=== PATIENT | female | born 1975 | race Caucasian/White ===

== ENCOUNTER → 2017-01-12 | Outpatient (CLI) | payer MEDICAID ==
[2017-01-12 07:49] LABS: Appearance,Urine Cloudy (Clear); Basophils % (A) 0 %; Bilirubin,Urine Negative (Negative); CH 29.1; CHCM 33.1; Eosinophils # (A) 0.2 k/uL (0-0.7); Eosinophils % (A) 2 %; Glucose,Urine (UA) Negative (Negative); HDW 2.48; HGB 13.4 gm/dL (11.4-16.0); Ketones,Urine Negative (Negative); Large Platelets Flag Slight; Leukocyte Esterase,Urine Moderate (Negative); Luc # (Auto) 0.09; Luc % (Auto) 1; Lymphocytes # (A) 1.3 k/uL (1.0-4.8); Lymphocytes % (A) 20 %; MCH 28.9 pg (25.0-35.0); MCHC 32.8 g/dL (31.0-37.0); MCV 88.1 fL (80.0-100.0); Mean Platelet Volume 10.6; Monocytes # (A) 0.4 k/uL (0-1.0); Monocytes % (A) 6 %; Mucus,Urine Many /hpf; Neutrophils # (A) 4.4 k/uL (1.3-7.7); Neutrophils % (A) 70 %; Nitrite,Urine Negative (Negative); Particle Count 15897; Protein,Urine Trace (Negative); RBC 4.66 m/uL (3.80-5.40); RBC,Urine 10 /hpf (0-5); RDW 13.4 % (11.5-15.5); Specific Gravity,Urine 1.023 (1.001-1.035); Squamous Epithelial Cell,Urine 5 /hpf (0-4); UA Billing (MACRO vs. MICRO) MICRO; Urobilinogen,Urine <2.0 mg/dL (<2.0); WBC 6.3 k/uL (3.8-10.6); WBC (Perox) 6.39; WBC,Urine 7 /hpf (0-5)
[2017-01-12 07:56] LABS: ALT 40 U/L (9-52); AST 27 U/L (14-36); Alkaline Phosphatase 76 U/L (38-126); Anion Gap 12 mmol/L; Blood Urea Nitrogen 16 mg/dL (7-17); Calcium 9.7 mg/dL (8.4-10.2); Carbon Dioxide 27 mmol/L (22-30); Chloride 105 mmol/L (98-107); Cholesterol 192 mg/dL (<200); Creatine Kinase 65 U/L (30-135); Glucose 91 mg/dL (74-99); HDL Cholesterol 46 mg/dL (40-60); Non-African American GFR(MDRD) >60 (>60 ml/min/1.73 sqM); Potassium 4.2 mmol/L (3.5-5.1); Sodium 144 mmol/L (137-145); Total Protein 7.1 g/dL (6.3-8.2); Triglycerides 143 mg/dL (<150); Uric Acid 6.8 mg/dL (3.7-7.4)
[2017-01-12 08:12] LABS: Large Platelets Present; Manual Review Performed
[2017-01-12 09:15] LABS: Hemoglobin A1C 5.1 % (4.2-6.1)
== END | disposition home or self-care (01) ==
LOC: LABWHC1 07:19
PROVIDERS: ATTEND Internal Medicine
DX: L70.8 Other acne (principal); E28.2 Polycystic ovarian syndrome; M47.816 Spondylosis without myelopathy or radiculopathy, lumbar region; E55.9 Vitamin D deficiency, unspecified
CPT/HCPCS: 36415; 80053; 80061; 81001; 82306; 82550; 83036; 84439; 84443; 84550; 85025

== ENCOUNTER → 2017-03-05 | Outpatient (CLI) | payer MEDICAID ==
--- NOTE | 2017-03-05 09:46 | MM ---
Reason for exam: screening (asymptomatic). Baseline mammogram. History: Patient is nulliparous. Taking progesterone beginning at age 33. Physical Findings: Nurse did not find any significant physical abnormalities on exam. MG 3D Screening Mammo W/Cad Bilateral CC and MLO view(s) were taken. There are scattered fibroglandular densities. Finding: There are calcifications in the upper outer quadrant, middle position of the right breast. These results were verbally communicated with the patient and result sheet given to the patient on 03/05/17. ASSESSMENT: Incomplete: need additional imaging evaluation, BI-RAD 0 RECOMMENDATION: Special view mammogram of the right breast. If lesion persists on supplemental views, image directed ultrasound is recommended. [facility] will attempt to contact patient to return for supplemental views and ultrasound if indicated.
--- NOTE | 2017-03-05 09:52 | MM ---
Reason for exam: additional evaluation requested from abnormal screening. History: Patient is nulliparous. Taking progesterone beginning at age 33. Physical Findings: Breast exam preformed at baseline screening. MG 3D Work Up W/Cad RT Spot compression CC with magnification, spot compression MLO with magnification, and ML view(s) were taken of the right breast. There are scattered fibroglandular densities. Finding: There are intermediate concern, suspicious coarse heterogeneous, grouped/clustered calcifications in the upper outer quadrant, middle position of the right breast. These results were verbally communicated with the patient and result sheet given to the patient on 03/05/17. ASSESSMENT: Suspicious, BI-RAD 4 RECOMMENDATION: Stereotactic core biopsy of the right breast. Called with mammographic findings and has scheduled an appointment for the patient for 03/09/17 at 1:[address] Bennett. PRELIMINARY REPORT CALLED AND FAXED TO DR. BENNETT ON 03/05/17 AT 300/TMP.
== END | disposition home or self-care (01) ==
LOC: RADMAMWWP 08:13
PROVIDERS: ATTEND Obstetrics & Gynecology
DX: Z12.31 Encounter for screening mammogram for malignant neoplasm of breast (principal); R92.2 Inconclusive mammogram; R92.8 Other abnormal and inconclusive findings on diagnostic imaging of breast
CPT/HCPCS: 77063; G0202; G0206; G0279

== ENCOUNTER → 2017-03-18 | Day surgery (SDC) | payer MEDICAID ==
[~2017-03-18] MED LIST: ALPRAZolam 0.25 MG TAB ONE; BACITRACIN OINT 1 EACH PACKET TOPICAL ONE; LIDOCAINE 1% INJ 10MG/ML (20 ML MDV) ONE
--- NOTE | 2017-03-18 15:45 | MM ---
EXAMINATION TYPE: MG stereo VAD BX RT DATE OF EXAM: 03/18/2017 3:14 PM COMPARISON: Prior mammogram 05 March 2017 CLINICAL HISTORY: Abnormal mammogram, breast calcifications TECHNIQUE: Stereotactic guided core biopsy of right breast. FINDINGS: The procedure of stereotactic guided core biopsy was explained to the patient. Benefits, alternatives, and risks were discussed. An informed consent was then obtained. Stereotactic mammotome unit was used to localize the breast calcifications. The skin overlying was prepped. Lidocaine used for local anesthesia. Core biopsy then obtained using vacuum-assisted device. Approximately 6 or 7 cores were obtained with an 8-gauge Needle. The patient tolerated the procedure well without any immediate complication. The patient was kept in the radiology department for short stay after the procedure and then discharged home in stable condition. Targeted calcifications are identified in specimen mammogram. Post biopsy digital mammogram shows the clip to appear in satisfactory position relative to the targeted area of concern on the preprocedure images. IMPRESSION: SUCCESSFUL, UNCOMPLICATED STEREOTACTIC GUIDED VACUUM ASSISTED CORE BIOPSY OF AREA OF CONCERN IN THE right BREAST, FULL PATHOLOGY RESULTS TO FOLLOW. Pathology Results: Benign BREAST, RIGHT, CORE BIOPSY: FIBROCYSTIC CHANGES INCLUDING CYSTS, APOCRINE METAPLASIA, FIBROSIS, USUAL TYPE DUCTAL HYPERPLASIA AND FOCAL FOREIGN BODY GIANT CELL REACTION WITH CHRONIC INFLAMMATION. SEE NOTE. ADDENDUM REPORT BREAST, RIGHT, CORE BIOPSY: FIBROCYSTIC CHANGES INCLUDING CYSTS, APOCRINE METAPLASIA, FIBROSIS, USUAL TYPE DUCTAL HYPERPLASIA AND CALCIUM OXALATE CRYSTAL WITH FOREIGN BODY GIANT CELL REACTION, CHOLESTEROL CLEFTS AND CHRONIC INFLAMMATION. Recommendation Follow up mammogram of the right breast in 6 months. HANNAH
== END ==
LOC: RADMAMWWP 13:16
PROVIDERS: ATTEND Obstetrics & Gynecology
DX: N60.31 Fibrosclerosis of right breast (principal); N60.81 Other benign mammary dysplasias of right breast; N60.91 Unspecified benign mammary dysplasia of right breast; N61.0 Mastitis without abscess; N60.11 Diffuse cystic mastopathy of right breast; Z88.3 Allergy status to other anti-infective agents; R92.0 Mammographic microcalcification found on diagnostic imaging of breast
CPT/HCPCS: 88305; 19081; A4648; J2001

== ENCOUNTER → 2017-04-26 | Outpatient (CLI) | payer MEDICAID | END | disposition home or self-care (01) | LOC: LABWHC1 13:17 | PROVIDERS: ATTEND Internal Medicine Geriatric Medicine | DX: E55.9 Vitamin D deficiency, unspecified (principal) | CPT/HCPCS: 36415; 82306 ==

== ENCOUNTER → 2018-04-26 | Outpatient (CLI) | payer MEDICAID ==
[2018-04-26 07:51] LABS: ALT 41 U/L (9-52); AST 30 U/L (14-36); Albumin 4.4 g/dL (3.5-5.0); Alkaline Phosphatase 74 U/L (38-126); Anion Gap 11 mmol/L; Blood Urea Nitrogen 13 mg/dL (7-17); Calcium 9.2 mg/dL (8.4-10.2); Carbon Dioxide 24 mmol/L (22-30); Chloride 107 mmol/L (98-107); Cholesterol 228 mg/dL (<200); Creatine Kinase 69 U/L (30-135); Glucose 91 mg/dL (74-99); HDL Cholesterol 54 mg/dL (40-60); LDL Cholesterol,Calculated 139 mg/dL (0-99); Magnesium 2.2 mg/dL (1.6-2.3); Potassium 4.7 mmol/L (3.5-5.1); Sodium 142 mmol/L (137-145); Total Bilirubin 1.2 mg/dL (0.2-1.3); Triglycerides 175 mg/dL (<150)
[2018-04-26 08:06] LABS: Appearance,Urine Clear (Clear); Bacteria,Urine Occasional /hpf; Bilirubin,Urine Negative (Negative); Blood,Urine Negative (Negative); Color,Urine Yellow; Glucose,Urine (UA) Negative (Negative); Ketones,Urine Negative (Negative); Leukocyte Esterase,Urine Trace (Negative); Mucus,Urine Moderate /hpf; Nitrite,Urine Negative (Negative); Protein,Urine Negative (Negative); RBC,Urine 3 /hpf (0-5); Specific Gravity,Urine 1.013 (1.001-1.035); Squamous Epithelial Cell,Urine 1 /hpf (0-4); T4, Free (Free Thyroxine) 0.75 ng/dL (0.78-2.19); Urobilinogen,Urine <2.0 mg/dL (<2.0); WBC,Urine 3 /hpf (0-5)
[2018-04-26 08:55] LABS: Basophils % (A) 0 %; Eosinophils # (A) 0.2 k/uL (0-0.7); Eosinophils % (A) 3 %; HCT 40.7 % (34.0-46.0); HGB 13.5 gm/dL (11.4-16.0); Lymphocytes # (A) 1.4 k/uL (1.0-4.8); Lymphocytes % (A) 22 %; MCH 28.9 pg (25.0-35.0); MCHC 33.3 g/dL (31.0-37.0); MCV 86.9 fL (80.0-100.0); Mean Platelet Volume 12.1; Monocytes # (A) 0.4 k/uL (0-1.0); Monocytes % (A) 6 %; Neutrophils # (A) 4.4 k/uL (1.3-7.7); Neutrophils % (A) 68 %; Platelet Count 188 k/uL (150-450); RBC 4.68 m/uL (3.80-5.40); RDW 13.5 % (11.5-15.5); WBC 6.5 k/uL (3.8-10.6)
[2018-04-26 10:52] LABS: Large Platelets Present
[2018-04-26 13:36] LABS: Hemoglobin A1C 5.4 % (4.0-6.0)
== END | disposition home or self-care (01) ==
LOC: LABWHC1 07:15
PROVIDERS: ATTEND Internal Medicine
DX: E78.00 Pure hypercholesterolemia, unspecified (principal); E55.9 Vitamin D deficiency, unspecified; R00.1 Bradycardia, unspecified
CPT/HCPCS: 36415; 80053; 80061; 81001; 82306; 82550; 83036; 83735; 84439; 84443; 85025

== ENCOUNTER → 2018-05-10 | Outpatient (CLI) | payer MEDICAID ==
--- NOTE | 2018-05-12 08:01 | MM ---
Reason for exam: screening (asymptomatic). Last mammogram was performed 8 months ago. History: Patient is nulliparous. Benign MG stereo VAD BX RT of the right breast, March 18, 2017. Taking progesterone beginning at age 33. Physical Findings: A clinical breast exam by your physician is recommended on an annual basis and results should be correlated with mammographic findings. MG 3D Screening Mammo W/Cad Bilateral CC and MLO view(s) were taken. Prior study comparison: September 09, 2017, right breast MG 3d diag mammo w/cad RT. March 05, 2017, right breast MG 3d work up w/cad RT. The breast tissue is heterogeneously dense. This may lower the sensitivity of mammography. No suspicious abnormality. Right biopsy marker noted. No significant changes when compared with prior studies. ASSESSMENT: Negative, BI-RAD 1 RECOMMENDATION: Routine screening mammogram of both breasts in 1 year.
== END | disposition home or self-care (01) ==
LOC: RADMAMWWP 07:14
PROVIDERS: ATTEND Obstetrics & Gynecology
DX: Z12.31 Encounter for screening mammogram for malignant neoplasm of breast (principal)
CPT/HCPCS: 77063; 77067

== ENCOUNTER → 2018-07-06 | Outpatient (CLI) | payer MEDICAID ==
[2018-07-06 08:12] LABS: T4, Free (Free Thyroxine) 0.83 ng/dL (0.78-2.19)
== END | disposition home or self-care (01) ==
LOC: LABWHC1 07:11
PROVIDERS: ATTEND Internal Medicine
DX: E78.00 Pure hypercholesterolemia, unspecified (principal); E03.9 Hypothyroidism, unspecified
CPT/HCPCS: 36415; 80061; 82550; 84439; 84443; 84450; 84460

== ENCOUNTER → 2019-03-30 | Outpatient (CLI) | payer MEDICAID ==
[2019-03-30 08:09] LABS: Basophils % (A) 1 %; Eosinophils # (A) 0.2 k/uL (0-0.7); Eosinophils % (A) 2 %; HCT 40.9 % (34.0-46.0); HGB 13.5 gm/dL (11.4-16.0); Lymphocytes # (A) 1.7 k/uL (1.0-4.8); Lymphocytes % (A) 23 %; MCH 29.3 pg (25.0-35.0); MCV 88.8 fL (80.0-100.0); Mean Platelet Volume 10.8; Monocytes # (A) 0.4 k/uL (0-1.0); Monocytes % (A) 6 %; Neutrophils # (A) 5.1 k/uL (1.3-7.7); Neutrophils % (A) 67 %; RBC 4.61 m/uL (3.80-5.40); WBC 7.5 k/uL (3.8-10.6)
[2019-03-30 08:21] LABS: Appearance,Urine Clear (Clear); Bacteria,Urine Occasional /hpf; Bilirubin,Urine Negative (Negative); Blood,Urine Negative (Negative); Color,Urine Yellow; Glucose,Urine (UA) Negative (Negative); Ketones,Urine Negative (Negative); Leukocyte Esterase,Urine Small (Negative); Mucus,Urine Occasional /hpf; Nitrite,Urine Negative (Negative); Protein,Urine Negative (Negative); RBC,Urine <1 /hpf (0-5); Specific Gravity,Urine 1.021 (1.001-1.035); Squamous Epithelial Cell,Urine 3 /hpf (0-4); Urobilinogen,Urine <2.0 mg/dL (<2.0); WBC,Urine 2 /hpf (0-5)
[2019-03-30 08:39] LABS: Large Platelets Present; Platelet Count 220 k/uL (150-450)
[2019-03-30 11:36] LABS: Albumin 4.3 g/dL (3.80-4.90); Albumin/Globulin Ratio 2.05 (1.60-3.17); Anion Gap 5.2 mmol/L (4.00-12.00); Calcium 9.5 mg/dL (8.7-10.3); Carbon Dioxide 26.8 mmol/L (21.6-31.8); Globulin 2.1 g/dL (1.6-3.3); LDL Cholesterol,Calculated 88.4 mg/dL (0.0-131.0); Potassium 4.5 mmol/L (3.5-5.5); Total Bilirubin 0.6 mg/dL (0.2-1.2); Total Protein 6.4 g/dL (6.2-8.2); VLDL Calculation 24.6 mg/dL (5.00-40.00)
[2019-03-30 11:45] LABS: T4, Free (Free Thyroxine) 1.1 ng/dL (0.80-1.80)
[2019-03-30 13:38] LABS: Hemoglobin A1C 5.4 % (4.0-6.0)
== END | disposition home or self-care (01) ==
LOC: LABWHC1 07:35
PROVIDERS: ATTEND Internal Medicine
DX: E78.2 Mixed hyperlipidemia (principal); E03.9 Hypothyroidism, unspecified; R79.9 Abnormal finding of blood chemistry, unspecified; E55.9 Vitamin D deficiency, unspecified
CPT/HCPCS: 36415; 80053; 80061; 81001; 82306; 82550; 83036; 84439; 84443; 85025

== ENCOUNTER → 2019-04-07 | Outpatient (CLI) | payer MEDICAID ==
--- NOTE | 2019-04-07 12:36 | XR ---
EXAMINATION TYPE: XR humerus LT DATE OF EXAM: 04/07/2019 CLINICAL HISTORY: Mass lesion with no injury. TECHNIQUE: Two views of the left humerus are obtained. COMPARISON: None. FINDINGS: There is no acute fracture or dislocation seen in the left humerus. The left shoulder and elbow joints appear within normal limits. The overlying soft tissue appears within normal limits. IMPRESSION: Unremarkable study, if clinical concern for soft tissue mass persists further investigati on with MRI may be warranted.
== END | disposition home or self-care (01) ==
LOC: RADXRMAIN 12:11
PROVIDERS: ATTEND Internal Medicine
DX: R22.32 Localized swelling, mass and lump, left upper limb (principal)

== ENCOUNTER → 2019-04-21 | Outpatient (CLI) | payer MEDICAID ==
--- NOTE | 2019-04-21 10:10 | MR ---
MR left humerus within without contrast HISTORY: Soft tissue mass Multiplanar multisequence and postcontrast images obtained through the upper left humerus following 1 2 cc Gadavist IV. Correlation to plain film 04/07/2019 There is a focal area of signal intensity which follows that of subcutaneous fat within the deltoid m usculature laterally at the site of patient's palpable abnormality. Bandlike area of signal intensity following patient's musculature signal is present running through this abnormality. The lesion measu res approximately 2.3 x 1.7 x 5.2 cm. No abnormal enhancement following contrast administration. The bone marrow signal is normal. Acromioclavicular joint arthropathy noted incidentally. Glenohumera l joint is maintained. No abnormal enhancement. Benign-appearing lymph nodes present in the left axil la. IMPRESSION: Findings compatible with lipoma.
== END | disposition home or self-care (01) ==
LOC: RADMRIMAIN 06:38
PROVIDERS: ATTEND Internal Medicine
DX: D17.22 Benign lipomatous neoplasm of skin and subcutaneous tissue of left arm (principal)
CPT/HCPCS: 73220; A9585

== ENCOUNTER → 2019-06-15 | Outpatient (CLI) | payer MEDICAID ==
--- NOTE | 2019-06-15 14:39 | MM ---
Reason for exam: screening (asymptomatic). Last mammogram was performed 1 year and 1 month ago. History: Patient is nulliparous. Family history of breast cancer in maternal aunt at age 58. Benign MG stereo VAD BX RT of the right breast, March 18, 2017. Taking progesterone beginning at age 33. Physical Findings: A clinical breast exam by your physician is recommended on an annual basis and results should be correlated with mammographic findings. MG 3D Screening Mammo W/Cad Bilateral CC and MLO view(s) were taken. Prior study comparison: May 10, 2018, bilateral MG 3d screening mammo w/cad. September 09, 2017, right breast MG 3d diag mammo w/cad RT. The breast tissue is heterogeneously dense. This may lower the sensitivity of mammography. Previous mammotome biopsy in the right breast. There is no discrete abnormality. ASSESSMENT: Benign, BI-RAD 2 RECOMMENDATION: Routine screening mammogram of both breasts in 1 year.
== END | disposition home or self-care (01) ==
LOC: RADMAMWWP 11:14
PROVIDERS: ATTEND Obstetrics & Gynecology
DX: Z12.31 Encounter for screening mammogram for malignant neoplasm of breast (principal)
CPT/HCPCS: 77063; 77067

== ENCOUNTER → 2020-05-20 | Outpatient (CLI) | payer MEDICAID ==
[2020-05-20 08:16] LABS: Basophils % (A) 1 %; Eosinophils # (A) 0.2 k/uL (0-0.7); Eosinophils % (A) 3 %; HCT 41.6 % (34.0-46.0); HGB 13.3 gm/dL (11.4-16.0); Lymphocytes # (A) 1.7 k/uL (1.0-4.8); Lymphocytes % (A) 20 %; MCH 28.5 pg (25.0-35.0); MCHC 32.1 g/dL (31.0-37.0); MCV 88.9 fL (80.0-100.0); Mean Platelet Volume 12.8; Monocytes # (A) 0.5 k/uL (0-1.0); Monocytes % (A) 5 %; Neutrophils # (A) 5.9 k/uL (1.3-7.7); Neutrophils % (A) 70 %; Platelet Count 177 k/uL (150-450); RBC 4.68 m/uL (3.80-5.40); RDW 13.4 % (11.5-15.5); WBC 8.4 k/uL (3.8-10.6)
[2020-05-20 08:29] LABS: Large Platelets Present
[2020-05-20 15:37] LABS: Albumin 4.3 g/dL (3.80-4.90); Albumin/Globulin Ratio 2.05 (1.60-3.17); Anion Gap 4.2 mmol/L (4.00-12.00); Calcium 9.4 mg/dL (8.7-10.3); Carbon Dioxide 27.8 mmol/L (21.6-31.8); Chol/HDL Ratio 3.35; Globulin 2.1 g/dL (1.6-3.3); Non-African American GFR(CKD) 106.1 (60.0-200.0); Potassium 4.4 mmol/L (3.5-5.5); Total Bilirubin 0.9 mg/dL (0.2-1.2); Total Protein 6.4 g/dL (6.2-8.2)
== END | disposition home or self-care (01) ==
LOC: LABWHC1 07:28
PROVIDERS: ATTEND Internal Medicine
DX: Z00.00 Encounter for general adult medical examination without abnormal findings (principal); E55.9 Vitamin D deficiency, unspecified; E78.2 Mixed hyperlipidemia
CPT/HCPCS: 36415; 80053; 80061; 82306; 84443; 85025

== ENCOUNTER → 2020-08-29 | Outpatient (CLI) | payer MEDICAID ==
--- NOTE | 2020-09-02 14:01 | MM ---
Reason for exam: screening (asymptomatic). Last mammogram was performed 1 year and 2 months ago. History: Patient is nulliparous. Family history of breast cancer in maternal aunt at age 58. Benign MG stereo VAD BX RT of the right breast, March 18, 2017. Taking progesterone beginning at age 33. Physical Findings: A clinical breast exam by your physician is recommended on an annual basis and results should be correlated with mammographic findings. MG 3D Screening Mammo W/Cad Bilateral CC and MLO view(s) were taken. Prior study comparison: June 15, 2019, bilateral MG 3d screening mammo w/cad. May 10, 2018, bilateral MG 3d screening mammo w/cad. There are scattered fibroglandular densities. No significant changes when compared with prior studies. ASSESSMENT: Benign, BI-RAD 2 RECOMMENDATION: Routine screening mammogram of both breasts in 1 year.
== END | disposition home or self-care (01) ==
LOC: RADMAMWWP 06:55
PROVIDERS: ATTEND Obstetrics & Gynecology
DX: Z12.31 Encounter for screening mammogram for malignant neoplasm of breast (principal)
CPT/HCPCS: 77063; 77067

== ENCOUNTER → 2021-05-12 | Outpatient (CLI) | payer MEDICAID ==
[2021-05-12 11:15] LABS: African American GFR (CKD) 122.1 (60.0-200.0); Albumin 4.3 g/dL (3.80-4.90); Albumin/Globulin Ratio 2.05 (1.60-3.17); Anion Gap 10.4 mmol/L (4.00-12.00); BUN/Creat Ratio 15.71 Ratio (12.00-20.00); Calcium 9.6 mg/dL (8.7-10.3); Carbon Dioxide 24.6 mmol/L (21.6-31.8); Chol/HDL Ratio 3.26; Globulin 2.1 g/dL (1.6-3.3); LDL Cholesterol,Calculated 84.4 mg/dL (0.0-131.0); Non-African American GFR(CKD) 105.4 (60.0-200.0); Potassium 4.2 mmol/L (3.5-5.5); Total Bilirubin 0.7 mg/dL (0.3-1.2); Total Protein 6.4 g/dL (6.2-8.2); VLDL Calculation 21.6 mg/dL (5.00-40.00)
[2021-05-12 12:56] LABS: Basophils # (A) 0.03 X 10*3/uL (0.00-0.10); Basophils % (A) 0.4 %; Eosinophils % (A) 2.4 %; HCT 39.6 % (37.2-46.3); HGB 12.9 g/dL (12.0-15.0); Lymphocytes # (A) 2.04 X 10*3/uL (0.90-5.00); Lymphocytes % (A) 24.7 %; MCH 29.7 pg (27.0-32.0); MCHC 32.6 g/dL (32.0-37.0); MCV 91.2 fL (80.0-97.0); Monocytes # (A) 0.71 X 10*3/uL (0.20-1.00); Monocytes % (A) 8.6 %; Neutrophils # (A) 5.26 X 10*3/uL (1.80-7.70); Neutrophils % (A) 63.5 %; Platelet Count 188 X 10*3/uL (140-440); RBC 4.34 X 10*6/uL (4.10-5.20); RDW 13.7 % (11.5-14.5); WBC 8.27 X 10*3/uL (4.50-10.00)
== END | disposition home or self-care (01) ==
LOC: LABWHC1 07:10
PROVIDERS: ATTEND Internal Medicine
DX: Z13.228 Encounter for screening for other metabolic disorders (principal); E03.9 Hypothyroidism, unspecified; E78.2 Mixed hyperlipidemia; E55.9 Vitamin D deficiency, unspecified
CPT/HCPCS: 36415; 80053; 80061; 82306; 84439; 84443; 85025

== ENCOUNTER → 2021-09-18 | Outpatient (CLI) | payer MEDICAID ==
--- NOTE | 2021-09-18 13:38 | MM ---
Reason for exam: screening (asymptomatic). Last mammogram was performed 1 year and 1 month ago. History: Patient is nulliparous. Family history of breast cancer in maternal aunt at age 58. Benign MG stereo VAD BX RT of the right breast, March 18, 2017. Taking progesterone beginning at age 33. Physical Findings: A clinical breast exam by your physician is recommended on an annual basis and results should be correlated with mammographic findings. MG 3D Screening Mammo W/Cad Bilateral CC and MLO view(s) were taken. Prior study comparison: August 29, 2020, bilateral MG 3d screening mammo w/cad. June 15, 2019, bilateral MG 3d screening mammo w/cad. There are scattered fibroglandular densities. There are benign appearing round calcifications bilaterally. Previous mammotome biopsy in the right breast. There is no discrete abnormality. ASSESSMENT: Benign, BI-RAD 2 RECOMMENDATION: Routine screening mammogram of both breasts in 1 year.
== END | disposition home or self-care (01) ==
LOC: RADMAMWWP 07:05
PROVIDERS: ATTEND Obstetrics & Gynecology
DX: Z12.31 Encounter for screening mammogram for malignant neoplasm of breast (principal); Z80.3 Family history of malignant neoplasm of breast
CPT/HCPCS: 77063; 77067

== ENCOUNTER → 2022-04-09 | Outpatient (CLI) | payer MEDICAID ==
--- NOTE | 2022-04-09 09:07 | USB ---
Reason for Exam: Clinical finding. Indicated Problems: Palpable abnormality. Patient History: Menarche at age 15. Patient has no children. Currently using Progesterone, starting at age 33. 03/18/2017, Benign Core Biopsy on the right side. Maternal aunt had breast cancer, age 58. Risk Values: Kierra 5 year model risk: 1.3%. NCI Lifetime model risk: 11.7%. Technique: Method: Whole Breast Handheld. Prior Study Comparison: 06/15/2019 Bilateral Screening Mammogram, [facility]. 08/29/2020 Bilateral Screening Mammogram, [facility]. 09/18/2021 Bilateral Screening Mammogram, [facility]. Findings: The whole breast of the right breast, the axilla of the right breast and the retroareolar of the right breast were scanned. No solid or cystic masses are identified. Whole right breast ultrasound including evaluation of subareolar and axillary region. Overall Assessment: Negative, BI-RAD 1 Electronically signed and approved by: Jose Costello M.D.
== END | disposition home or self-care (01) ==
LOC: RADUSWWP 08:22
PROVIDERS: ATTEND Obstetrics & Gynecology
DX: R92.8 Other abnormal and inconclusive findings on diagnostic imaging of breast (principal); Z80.3 Family history of malignant neoplasm of breast

== ENCOUNTER → 2022-07-17 | Outpatient (CLI) | payer MEDICAID ==
[2022-07-17 10:55] LABS: Basophils # (A) 0.04 X 10*3/uL (0.00-0.10); Basophils % (A) 0.5 %; Eosinophils % (A) 1.3 %; HCT 40.6 % (37.2-46.3); HGB 13.5 g/dL (12.0-15.0); Immature Grans, Automated 0.3 %; Lymphocytes # (A) 1.62 X 10*3/uL (0.90-5.00); Lymphocytes % (A) 20.7 %; MCH 29.8 pg (27.0-32.0); MCHC 33.3 g/dL (32.0-37.0); MCV 89.6 fL (80.0-97.0); Mean Platelet Volume 14.2 fL (9.5-12.2); Monocytes # (A) 0.67 X 10*3/uL (0.20-1.00); Monocytes % (A) 8.6 %; NRBC Per 100 WBC 0 /100 WBCS (0.0-0.0); Neutrophils # (A) 5.36 X 10*3/uL (1.80-7.70); Neutrophils % (A) 68.6 %; Platelet Count 191 X 10*3/uL (140-440); RBC 4.53 X 10*6/uL (4.10-5.20); RDW 13.2 % (11.5-14.5); WBC 7.81 X 10*3/uL (4.50-10.00)
[2022-07-17 12:14] LABS: ALT 16 U/L (8-44); AST 19 U/L (13-35); African American GFR (CKD) 122.7 (60.0-200.0); Albumin 4.3 g/dL (3.8-4.9); Albumin/Globulin Ratio 2.19 (1.60-3.17); Alkaline Phosphatase 66 U/L (41-126); BUN/Creat Ratio 15.09 Ratio (12.00-20.00); Blood Urea Nitrogen 10.2 mg/dL (9.0-27.0); Calcium 9.1 mg/dL (8.7-10.3); Carbon Dioxide 23.8 mmol/L (20.0-27.5); Chloride 106 mmol/L (96-109); Glucose 91 mg/dL (70-110); LDL Cholesterol,Calculated 66.3 mg/dL (0.0-131.0); Non-African American GFR(CKD) 105.8 (60.0-200.0); Potassium 4.1 mmol/L (3.5-5.5); Sodium 142 mmol/L (135-145); Total Protein 6.3 g/dL (6.2-8.2); VLDL Calculation 12.34 mg/dL (5.00-40.00)
[2022-07-17 16:03] LABS: Appearance,Urine Cloudy (Clear); Bilirubin,Urine Small (Negative); Blood,Urine Negative (Negative); Color,Urine Dark Yellow (Yellow); Ketones,Urine Trace mg/dL (Negative); Nitrite,Urine Negative (Negative); Specific Gravity,Urine 1.028 (1.001-1.030)
[2022-07-17 16:08] LABS: Bacteria,Urine Trace /HPF (None Seen)
== END | disposition home or self-care (01) ==
LOC: LABWHC1 07:13
PROVIDERS: ATTEND Internal Medicine
DX: E03.9 Hypothyroidism, unspecified (principal); E28.2 Polycystic ovarian syndrome; E78.2 Mixed hyperlipidemia
CPT/HCPCS: 36415; 80053; 80061; 81001; 83036; 84439; 84443; 85025

== ENCOUNTER → 2022-09-30 | Outpatient (CLI) | payer MEDICAID ==
--- NOTE | 2022-09-30 16:00 | MM ---
Reason for Exam: Screening (asymptomatic). Last screening mammogram was performed 12 month(s) ago. Patient History: Menarche at age 15. Patient has no children. Progesterone, starting at age 33 for 12 years. 03/18/2017, Benign Core Biopsy on the right side. Maternal aunt had breast cancer, age 58. Risk Values: Kierra 5 year model risk: 1.3%. NCI Lifetime model risk: 11.7%. Prior Study Comparison: 06/15/2019 Bilateral Screening Mammogram, [facility]. 08/29/2020 Bilateral Screening Mammogram, [facility]. 09/18/2021 Bilateral Screening Mammogram, [facility]. Tissue Density: There are scattered fibroglandular densities. Findings: Analyzed By CAD. Right biopsy clip. Asymmetry within the right breast seen on CC only measuring 7 mm and approximately 11.8 cm from the nipple. No evidence for suspicious mass distortion or desiccation of the left breast. ASSESSMENT: 1 - Negative. Overall Assessment: Incomplete: need additional imaging evaluation, BI-RAD 0 Management: Diagnostic Mammogram of the left breast. A clinical breast exam by your physician is recommended on an annual basis and results should be correlated with mammographic findings. [facility] will attempt to contact patient to return for supplemental views and ultrasound if indicated. Electronically signed and approved by: Serafin Bhardwaj DO
== END | disposition home or self-care (01) ==
LOC: RADMAMWWP 07:22
PROVIDERS: ATTEND Obstetrics & Gynecology
DX: Z12.31 Encounter for screening mammogram for malignant neoplasm of breast (principal); Z80.3 Family history of malignant neoplasm of breast
CPT/HCPCS: 77063; 77067

== ENCOUNTER → 2022-10-07 | Outpatient (CLI) | payer MEDICAID ==
--- NOTE | 2022-10-07 09:45 | MM ---
Reason for Exam: Additional evaluation requested from abnormal screening. Last screening mammogram was performed less than 1 month ago. Patient History: Menarche at age 15. Patient has no children. Progesterone, starting at age 33 for 12 years. 03/18/2017, Benign Core Biopsy on the right side. Maternal aunt had breast cancer, age 58. Risk Values: Kierra 5 year model risk: 1.3%. NCI Lifetime model risk: 11.7%. Prior Study Comparison: 08/29/2020 Bilateral Screening Mammogram, [facility]. 09/18/2021 Bilateral Screening Mammogram, [facility]. 09/30/2022 Bilateral MG 3D screening mammo w/cad, [facility]. Tissue Density: Left: The breast tissue is heterogeneously dense. This may lower the sensitivity of mammography. Findings: Analyzed By CAD. Nodular density measuring 8 mm approximately 11 mm from the nipple at the left 9:00 position persists. Ultrasound is recommended. Overall Assessment: Incomplete: need additional imaging evaluation, BI-RAD 0 Management: Diagnostic Breast Ultrasound of the left breast. A clinical breast exam by your physician is recommended on an annual basis and results should be correlated with mammographic findings. This exam should not preclude additional follow-up of suspicious palpable abnormalities. Results were given to the patient verbally at the time of exam. Electronically signed and approved by: Yifan Max M.D. Radiologis
--- NOTE | 2022-10-07 10:15 | USB ---
Reason for Exam: Additional evaluation requested from abnormal screening. Patient History: Menarche at age 15. Patient has no children. Progesterone, starting at age 33 for 12 years. 03/18/2017, Benign Core Biopsy on the right side. Maternal aunt had breast cancer, age 58. Risk Values: Kierra 5 year model risk: 1.3%. NCI Lifetime model risk: 11.7%. Prior Study Comparison: 08/29/2020 Bilateral Screening Mammogram, [facility]. 09/18/2021 Bilateral Screening Mammogram, [facility]. 09/30/2022 Bilateral MG 3D screening mammo w/cad, [facility]. Findings: The lower inner quadrant of the left breast and the retroareolar of the left breast were scanned. No solid or cystic masses are identified.. Overall Assessment: Probably benign, BI-RAD 3 Management: Diagnostic Mammogram of the left breast in 6 months. A clinical breast exam by your physician is recommended on an annual basis and results should be correlated with mammographic findings. This exam should not preclude additional follow-up of suspicious palpable abnormalities. Results were given to the patient verbally at the time of exam. Electronically signed and approved by: Yifan Max M.D. Radiologis
== END | disposition home or self-care (01) ==
LOC: RADMAMWWP 09:03
PROVIDERS: ATTEND Obstetrics & Gynecology
DX: R92.8 Other abnormal and inconclusive findings on diagnostic imaging of breast (principal); Z80.3 Family history of malignant neoplasm of breast
CPT/HCPCS: 77061; 77065

== ENCOUNTER → 2023-04-12 | Outpatient (CLI) | payer MEDICAID ==
--- NOTE | 2023-04-12 07:29 | MM ---
Reason for Exam: Follow-up at short interval from prior study. Last screening mammogram was performed 7 month(s) ago. Patient History: Menarche at age 15. Patient has no children. Progesterone, starting at age 33 for 12 years. 03/18/2017, Benign Core Biopsy on the right side. Maternal aunt had breast cancer, age 58. Last menstrual period: 04/05/2023 Risk Values: Kierra 5 year model risk: 1.3%. NCI Lifetime model risk: 11.5%. Prior Study Comparison: 09/18/2021 Bilateral Screening Mammogram, [facility]. 09/30/2022 Bilateral MG 3D screening mammo w/cad, [facility]. 10/07/2022 Left MG 3D work up w/cad , [facility]. Tissue Density: Left: The breast tissue is heterogeneously dense. This may lower the sensitivity of mammography. Findings: Analyzed By CAD. Persistent nodular density measuring 8 mm at the left lower inner left breast at posterior depth. No new suspicious masses or suspicious calcifications. Overall Assessment: Incomplete: need additional imaging evaluation, BI-RAD 0 Management: Diagnostic Breast Ultrasound of the left breast. A clinical breast exam by your physician is recommended on an annual basis and results should be correlated with mammographic findings. This exam should not preclude additional follow-up of suspicious palpable abnormalities. Results were given to the patient verbally at the time of exam. Electronically signed and approved by: Adolfo Reyes D.O.
--- NOTE | 2023-04-12 07:47 | USB ---
Reason for Exam: Follow-up at short interval from prior study. Patient History: Menarche at age 15. Patient has no children. Progesterone, starting at age 33 for 12 years. 03/18/2017, Benign Core Biopsy on the right side. Maternal aunt had breast cancer, age 58. Risk Values: Kierra 5 year model risk: 1.3%. NCI Lifetime model risk: 11.5%. Technique: Method: Targeted. Prior Study Comparison: 09/18/2021 Bilateral Screening Mammogram, [facility]. 09/30/2022 Bilateral MG 3D screening mammo w/cad, [facility]. 10/07/2022 Left MG 3D work up w/cad , [facility]. Findings: The lower inner quadrant of the left breast, the axilla of the left breast and the retroareolar of the left breast were scanned. Targeted ultrasound of the left breast from 6-10 o'clock was performed with additional evaluation of the nipple and axilla. No solid or cystic lesion identified corresponding to mammographic findings. Overall Assessment: Probably benign, BI-RAD 3 Management: Diagnostic Mammogram of both breasts in 6 months. A clinical breast exam by your physician is recommended on an annual basis and results should be correlated with mammographic findings. This exam should not preclude additional follow-up of suspicious palpable abnormalities. Results were given to the patient verbally at the time of exam. Electronically signed and approved by: Adolfo Reyes D.O.
== END | disposition home or self-care (01) ==
LOC: RADMAMWWP 07:00
PROVIDERS: ATTEND Obstetrics & Gynecology
DX: N63.24 Unspecified lump in the left breast, lower inner quadrant (principal); Z80.3 Family history of malignant neoplasm of breast; R92.8 Other abnormal and inconclusive findings on diagnostic imaging of breast; R92.2 Inconclusive mammogram
CPT/HCPCS: 77061; 77065

== ENCOUNTER → 2023-07-24 | Outpatient (CLI) | payer MEDICAID ==
[2023-07-24 09:40] LABS: Appearance,Urine Cloudy (Clear); Bacteria,Urine Occasional /hpf; Bilirubin,Urine Negative (Negative); Blood,Urine Negative (Negative); Color,Urine Light Yellow; Glucose,Urine (UA) Negative (Negative); Ketones,Urine Negative (Negative); Leukocyte Esterase,Urine Trace (Negative); Mucus,Urine Rare /hpf; Nitrite,Urine Negative (Negative); Protein,Urine Negative (Negative); RBC,Urine 1 /hpf (0-5); Specific Gravity,Urine 1.013 (1.001-1.035); Squamous Epithelial Cell,Urine 3 /hpf (0-4); Urobilinogen,Urine <2.0 mg/dL (<2.0); WBC,Urine 1 /hpf (0-5)
[2023-07-24 10:53] LABS: Basophils % (A) 0 %; Eosinophils # (A) 0.1 k/uL (0-0.7); Eosinophils % (A) 1 %; HCT 41.5 % (34.0-46.0); HGB 13.7 gm/dL (11.4-16.0); Lymphocytes # (A) 1.4 k/uL (1.0-4.8); Lymphocytes % (A) 21 %; MCH 29.9 pg (25.0-35.0); MCHC 33.1 g/dL (31.0-37.0); MCV 90.3 fL (80.0-100.0); Monocytes # (A) 0.4 k/uL (0-1.0); Monocytes % (A) 6 %; Neutrophils # (A) 4.6 k/uL (1.3-7.7); Neutrophils % (A) 70 %; Platelet Count 217 k/uL (150-450); RBC 4.59 m/uL (3.80-5.40); RDW 13.4 % (11.5-15.5); WBC 6.6 k/uL (3.8-10.6)
[2023-07-24 15:10] LABS: ALT 25 U/L (8-44); AST 21 U/L (13-35); Albumin 4.5 d/dL (3.8-4.9); Albumin/Globulin Ratio 2.05 Ratio (1.60-3.17); Alkaline Phosphatase 76 U/L (41-126); BUN/Creat Ratio 17.33 Ratio (12.00-20.00); Blood Urea Nitrogen 10.4 mg/dL (9.0-27.0); Calcium 8.9 mg/dL (8.7-10.3); Carbon Dioxide 24.8 mmol/L (21.6-31.8); Chloride 107 mmol/L (96-109); Chol/HDL Ratio 2.67 Ratio; Globulin 2.2 d/dL (1.6-3.3); Glucose 90 mg/dL (70-110); LDL Cholesterol,Calculated 70.9 mg/dL (0.0-131.0); Magnesium 2.1 mg/dL (1.5-2.4); Potassium 4.4 mmol/L (3.5-5.5); Sodium 142 mmol/L (135-145); Total Bilirubin 0.5 mg/dL (0.3-1.2); Total Protein 6.7 d/dL (6.2-8.2); VLDL Calculation 13.54 mg/dL (5.00-40.00)
== END | disposition home or self-care (01) ==
LOC: LABWHC1 08:20
PROVIDERS: ATTEND Internal Medicine
DX: Z00.00 Encounter for general adult medical examination without abnormal findings (principal); E78.2 Mixed hyperlipidemia; E55.9 Vitamin D deficiency, unspecified; E03.9 Hypothyroidism, unspecified
CPT/HCPCS: 36415; 80053; 80061; 81001; 82306; 83735; 84443; 85025

== ENCOUNTER → 2023-07-28 | Outpatient (CLI) | payer MEDICAID | END | disposition home or self-care (01) | LOC: LABWHC1 15:01 | PROVIDERS: ATTEND Internal Medicine | DX: M10.9 Gout, unspecified (principal) | CPT/HCPCS: 36415; 84550 ==

== ENCOUNTER → 2023-07-28 | Outpatient (CLI) | payer MEDICAID ==
--- NOTE | 2023-07-28 13:59 | XR ---
3 views right ankle. DATE: 07/28/2023. COMPARISON: None available. HISTORY: Right ankle pain. FINDINGS: There is no fracture, subluxation or dislocation. The joint spaces and soft tissues are within normal limits. There is a small plantar calcaneal heel spur. Pression: No acute osseous abnormality.
== END | disposition home or self-care (01) ==
LOC: RADXRMAIN 13:38
PROVIDERS: ATTEND Internal Medicine
DX: M25.571 Pain in right ankle and joints of right foot (principal)

== ENCOUNTER → 2023-10-13 | Outpatient (CLI) | payer MEDICAID ==
--- NOTE | 2023-10-14 12:31 | MM ---
Reason for Exam: Screening (asymptomatic). Last mammogram was performed 1 year(s) and 1 month(s) ago. Patient History: Menarche at age 15. Patient has no children. Premenopausal. Progesterone, starting at age 33 for 12 years. 03/18/2017, Benign Core Biopsy on the right side. Maternal aunt had breast cancer, age 58. Last menstrual period: 10/02/2023 Risk Values: Kierra 5 year model risk: 1.3%. NCI Lifetime model risk: 11.5%. Prior Study Comparison: 09/30/2022 Bilateral MG 3D screening mammo w/cad, [facility]. 10/07/2022 Left MG 3D work up w/cad LT, [facility]. 04/12/2023 Left MG 3D diag mammo w/cad LT, [facility]. Tissue Density: The breast tissue is heterogeneously dense. This may lower the sensitivity of mammography. Findings: Analyzed By CAD. There is no suspicious group of microcalcifications or new suspicious mass in either breast. Overall Assessment: Negative, BI-RAD 1 Management: Screening Mammogram of both breasts in 1 year. . Patient should continue monthly self-breast exams. A clinical breast exam by your physician is recommended on an annual basis. This exam should not preclude additional follow-up of suspicious palpable abnormalities. Note on Kierra scores and lifetime risk: 1. A Kierra score greater than 3% is considered moderate risk. If this is the case, consider specialist referral to assess eligibility for a risk reducing agent. 2. If overall lifetime risk for the development of breast cancer is 20% or higher, the patient may qualify for future screening with alternating mammogram and breast MRI. Electronically signed and approved by: Yifan Max M.D. Radiologis
== END | disposition home or self-care (01) ==
LOC: RADMAMWWP 07:40
PROVIDERS: ATTEND Obstetrics & Gynecology
DX: Z12.31 Encounter for screening mammogram for malignant neoplasm of breast (principal); Z80.3 Family history of malignant neoplasm of breast
CPT/HCPCS: 77063; 77067

== ENCOUNTER → 2024-08-07 | Outpatient (CLI) | payer MEDICAID ==
[2024-08-07 18:58] LABS: Uric Acid 3.9 mg/dL (2.9-7.7)
[2024-08-07 18:59] LABS: C Reactive Protein <0.30 mg/dL (0.00-0.80); Rheumatoid Factor, Qnt <15 IU/mL (0-15)
[2024-08-07 21:44] LABS: Cyclic Citrull Pep IgG Unit <1.5 U/mL (<=3.9); Cyclic Citrullinated Pep IgG Negative
[2024-08-08 08:16] LABS: HLA B27 NEGATIVE
== END | disposition home or self-care (01) ==
LOC: LABWHC1 14:05
PROVIDERS: ATTEND Internal Medicine
DX: M19.90 Unspecified osteoarthritis, unspecified site (principal)
CPT/HCPCS: 36415; 83520; 84550; 85652; 86038; 86140; 86200; 86431; 86618; 86812

== ENCOUNTER → 2024-10-17 | Outpatient (CLI) | payer MEDICAID ==
--- NOTE | 2024-10-22 04:45 | MM ---
Reason for Exam: Screening (asymptomatic). Last screening mammogram was performed 12 month(s) ago. Patient History: Menarche at age 15. Patient has no children. Premenopausal. Progesterone, starting at age 33 for 12 years. 03/18/2017, Benign Core Biopsy on the right side. Maternal aunt had breast cancer, age 58. Risk Values: Kierra 5 year model risk: 1.2%. NCI Lifetime model risk: 11.3%. Prior Study Comparison: 10/07/2022 Left MG 3D work up w/cad LT, [facility]. 04/12/2023 Left MG 3D diag mammo w/cad LT, [facility]. 10/13/2023 Bilateral MG 3D screening mammo w/cad, [facility]. Tissue Density: The breasts are heterogeneously dense, which may obscure small masses. Findings: Analyzed By CAD. The pattern is symmetrical. No significant interval change. Core marker is within the right breast. No suspicious groups of microcalcifications, spiculated or lobular masses, architectural distortion or other secondary signs of malignancy are mammographically apparent. Overall Assessment: Benign, BI-RAD 2 Management: Screening Mammogram of both breasts in 1 year. A negative mammogram report should not preclude additional follow up of suspicious palpable abnormalities. Patient should continue monthly self breast exam. A clinical breast exam by your physician is recommended on an annual basis and results should be correlated with mammographic findings. Note on Kierra scores and lifetime risk: 1. A Kierra score greater than 3% is considered moderate risk. If this is the case, consider specialist referral to assess eligibility for a risk reducing agent. 2. If overall lifetime risk for the development of breast cancer is 20% or higher, the patient may qualify for future screening with alternating mammogram and breast MRI. [facility], , 10/22/2024 4:42 AM. Electronically signed and approved by: Alonso Cahpman D.O. Radiologis
== END | disposition home or self-care (01) ==
LOC: RADMAMWWP 07:14
PROVIDERS: ATTEND Obstetrics & Gynecology
DX: Z12.31 Encounter for screening mammogram for malignant neoplasm of breast (principal); R92.333 Mammographic heterogeneous density, bilateral breasts; Z80.3 Family history of malignant neoplasm of breast
CPT/HCPCS: 77063; 77067

== ENCOUNTER 2024-12-29 07:24 | Day surgery (SDC) | payer MEDICAID ==
[~2024-12-29 07:24] MED LIST changes: -ALPRAZolam 0.25 MG TAB ONE; -BACITRACIN OINT 1 EACH PACKET TOPICAL ONE; +HYDROmorphone 0.5 MG/0.5 ML SYRINGE IVP PRN; -LIDOCAINE 1% INJ 10MG/ML (20 ML MDV) ONE; +MIDAZOLAM 2 MG/2 ML VIAL IV PRN; +Pre Op ABX Message 1 EACH MISC MISCELLANE ONE
[2024-12-29] MEDS: LACTATED RINGERS 1,000 ML IV SCH (08:05)
[2024-12-29] MEDS: IV FLUID CONTINUATION 1,000 ML IV ONE (08:05)
[2024-12-29] MEDS: ONDANSETRON 4 MG/2 ML VIAL IVP ONE (08:16)
[2024-12-29] MEDS: ACETAMINOPHEN TAB 500 MG TAB PO PRN (08:16)
[2024-12-29] MEDS: DEXAMETHASONE SOD PHOSPHATE 4 MG/ML 1 ML VIAL IV ONE (08:17)
[2024-12-29] MEDS: HEPARIN SODIUM,PORCINE 5,000 UNIT/ML 1 ML VIAL SQ PRN (08:20)
[2024-12-29] MEDS: SCOPOLAMINE 1 MG/72 HR PATCH TRANSDERM ONE (08:21)
[2024-12-29] MEDS ORDERED: MIDAZOLAM 2 MG/2 ML VIAL ONE (09:04)
[2024-12-29] MEDS ORDERED: PROPOFOL 10 MG/ML 20 ML VIAL IV ONE (09:04)
[2024-12-29] MEDS ORDERED: KETOROLAC 15 MG/ML 1 ML VIAL ONE (09:04)
[2024-12-29] MEDS ORDERED: GLYCOPYRROLATE 0.2 MG/ML 2 ML VIAL ONE (09:04)
[2024-12-29] MEDS ORDERED: fentaNYL (PF) 50 MCG/ML 2 ML AMP ONE (09:04)
[2024-12-29] MEDS ORDERED: LIDOCAINE 1% INJ 10MG/ML (20 ML MDV) ONE (09:04)
[2024-12-29] MEDS: SODIUM CHLORIDE 0.9% 50 ML with ceFAZolin 2,000 MG IV ONE (09:06)
[2024-12-29] MEDS: BUPIVACAINE (PF) 0.25% 30 ML VIAL SQ ONE (09:47)
[2024-12-29 10:17] VITALS: TEMP 97
[2024-12-29] MEDS ORDERED: NALOXONE 0.4 MG/ML 1 ML VIAL IV PRN (10:39)
--- NOTE | 2024-12-29 10:45 | P.OP ---
Date of Procedure: 12/29/24 Procedure(s) Performed: PREOPERATIVE DIAGNOSIS: Left arm lipoma POSTOPERATIVE DIAGNOSIS: Same PROCEDURE: Excision subfascial left arm lipoma 6 x 4 cm with intermediate closure SURGEON: Mindy EBL: Adan cc ANESTHESIA: General COMPLICATIONS: None OPERATIVE PROCEDURE: Patient placed on the operating table in the supine position. An oblique incision was made across the left upper arm anteriorly along Langerhans lines. The subcutaneous tissues were divided using electrocautery. The fascia was visualized. There was fatty tissue beneath the fascia. The fascia was incised. The lipomatous mass was able to be excised using a combination of blunt dissection and cautery. The patient had multiple fingerlike projections coming off of this lipomatous mass intertwined with the muscle fibers. Minimal muscle was divided in order to excise this lipomatous mass. This was removed as primarily 1 large piece. A few smaller portions of lipomatous tissue were excised at the superior aspect where the lipoma became narrow. The area was irrigated with saline. No residual lipomatous tissue or bleeding was seen. Subcutaneous layer was closed using 3-0 Vicryl sutures. Skin closed using a running 4-0 Monocryl suture subcuticular stitch. Skin glue and sterile dressings applied. DISPOSITION: Stable to recovery room
[2024-12-29 10:50] VITALS: RESP 16
[2024-12-29 11:16] VITALS: BP 122/72; PULSE 68
== END 2024-12-29 11:36 | disposition home or self-care (01) ==
LOC: OR 07:24
PROVIDERS: ATTEND Surgery
DX: D17.79 Benign lipomatous neoplasm of other sites (principal); E03.9 Hypothyroidism, unspecified; E55.9 Vitamin D deficiency, unspecified; E78.5 Hyperlipidemia, unspecified; K21.9 Gastro-esophageal reflux disease without esophagitis; M19.90 Unspecified osteoarthritis, unspecified site; E28.2 Polycystic ovarian syndrome; Z79.899 Other long term (current) drug therapy; Z79.890 Hormone replacement therapy; Z79.84 Long term (current) use of oral hypoglycemic drugs; Z90.89 Acquired absence of other organs; Z88.1 Allergy status to other antibiotic agents
CPT/HCPCS: 81025; 24073; J2250; J1644; J1100; J2405; J0690; J2003; J3010; J1885; J2704; J0665; J1596; 88304

== ENCOUNTER → 2025-01-12 | Outpatient (CLI) | payer MEDICAID ==
[2025-01-12 15:30] LABS: Basophils # (A) 0.03 X 10*3/uL (0.00-0.10); Basophils % (A) 0.4 %; Eosinophils % (A) 1.4 %; HCT 40.5 % (37.2-46.3); HGB 12.9 g/dL (12.0-15.0); Lymphocytes # (A) 1.31 X 10*3/uL (0.90-5.00); Lymphocytes % (A) 18.6 %; MCH 28.9 pg (27.0-32.0); MCHC 31.9 g/dL (32.0-37.0); MCV 90.8 FL (80.0-97.0); Mean Platelet Volume 14.1 FL (9.5-12.2); Monocytes # (A) 0.36 X 10*3/uL (0.20-1.00); Monocytes % (A) 5.1 %; NRBC Per 100 WBC 0 X 10*3/uL (0.00-0.01); Neutrophils # (A) 5.24 X 10*3/uL (1.80-7.70); Neutrophils % (A) 74.2 %; Platelet Count 195 X 10*3/uL (140-440); RBC 4.46 X 10*6/uL (4.10-5.20); RDW 14.3 % (11.5-14.5); WBC 7.06 X 10*3/uL (4.50-10.00)
[2025-01-12 15:48] LABS: ALT 18 U/L (8-44); AST 20 U/L (13-35); Albumin 4.1 g/dL (3.8-4.9); Albumin/Globulin Ratio 1.86 Ratio (1.60-3.17); Alkaline Phosphatase 82 U/L (41-126); BUN/Creat Ratio 12.43 Ratio (12.00-20.00); Blood Urea Nitrogen 8.7 mg/dL (9.0-27.0); C Reactive Protein <0.30 mg/dL (0.00-0.80); Carbon Dioxide 26.8 mmol/L (21.6-31.8); Chloride 106 mmol/L (96-109); Chol/HDL Ratio 2.64 Ratio; Creatine Kinase 55 U/L (26-186); Globulin 2.2 g/dL (1.6-3.3); Glucose 88 mg/dL (70-110); LDL Cholesterol,Calculated 84.1 mg/dL (0.0-131.0); Potassium 4.5 mmol/L (3.5-5.5); Sodium 142 mmol/L (135-145); Total Bilirubin 0.7 mg/dL (0.3-1.2); Total Protein 6.3 g/dL (6.2-8.2)
[2025-01-12 16:03] LABS: Erythrocyte Sedimentation Rate 16 mm/Hr (0-20)
== END | disposition home or self-care (01) ==
LOC: LABWHC1 08:59
PROVIDERS: ATTEND Internal Medicine
DX: E78.2 Mixed hyperlipidemia (principal); E55.9 Vitamin D deficiency, unspecified; M25.50 Pain in unspecified joint
CPT/HCPCS: 36415; 80053; 80061; 82306; 82550; 83036; 84443; 85025; 85652; 86140

== ENCOUNTER → 2025-01-25 | Outpatient (CLI) | payer MEDICAID ==
--- NOTE | 2025-01-25 15:08 | NM ---
EXAMINATION TYPE: NM bone scan whole body DATE OF EXAM: 01/25/2025 3:02 PM CLINICAL INDICATION:Female, 49 years old with history of M25.50 PAIN IN UNSPECIFIED JOINT; COMPARISON: None TECHNIQUE: Intravenous administration 22.7 mCi Tc 99m MDP followed by multiple scintigraphic images o f the appendicular and axial skeleton. Images acquired 3 hours post injection. FINDINGS: No abnormal uptake is identified within the appendicular or axial skeleton to suggest metastatic dise ase. No significantly increased uptake within the joints. The radius jaw on the relatively symmetric bilat erally. Physiologic radiotracer activity is demonstrated in the kidneys and bladder. IMPRESSION: 1. No abnormal uptake within the joints. 2. Nothing to suggest metastatic disease. [facility], , 01/25/2025 3:06 PM
== END | disposition home or self-care (01) ==
LOC: RADNMMAIN 10:34
PROVIDERS: ATTEND Internal Medicine
DX: M25.50 Pain in unspecified joint (principal)
CPT/HCPCS: 78306; A9503

== ENCOUNTER 2025-02-16 08:28 | Day surgery (SDC) | payer MEDICAID ==
[2025-02-14 15:18] VITALS: BMI 34.1
[~2025-02-16 08:28] MED LIST changes: -HYDROmorphone 0.5 MG/0.5 ML SYRINGE IVP PRN; +LACTATED RINGERS 1,000 ML IV SCH; -MIDAZOLAM 2 MG/2 ML VIAL IV PRN; -Pre Op ABX Message 1 EACH MISC MISCELLANE ONE
[2025-02-16 09:05] VITALS: RESP 16; TEMP 98.4
[2025-02-16] MEDS: IV FLUID CONTINUATION 1,000 ML IV ONE (09:05)
[2025-02-16] MEDS ORDERED: LIDOCAINE 2% (PF) 20 MG/ML 5 ML VIAL ONE (09:12)
[2025-02-16] MEDS ORDERED: PROPOFOL 10 MG/ML 20 ML VIAL IV ONE (09:12)
[2025-02-16] MEDS ORDERED: GLYCOPYRROLATE 0.2 MG/ML 2 ML VIAL ONE (09:12)
[2025-02-16 09:24] LABS: Glucose,Whole Blood 91 mg/dL (70-110)
--- NOTE | 2025-02-16 09:32 | P.PCN ---
Date of Procedure: 02/16/25 Procedure(s) Performed: Brief history: Patient is a pleasant 49-year-old white female scheduled for an elective upper endoscopy as well as colonoscopy as a part of evaluation of no send history of GERD and screening for colon cancer Procedure performed: Esophagogastroduodenoscopy with biopsy Colonoscopy Preoperative diagnosis: Longstanding history of GERD Screening for colon cancer Anesthesia: MAC Procedure: After informed consent was obtained from the patient was brought into the endoscopy unit and IV sedation was administered by anesthesia under continuous monitoring. Initially upper endoscopy was done. The Olympus GF 160 video endoscope was inserted inserted into the mouth and esophagus intubated without any difficulty and was gradually advanced into the stomach and duodenum and carefully examined. The bulb and second part of the duodenum appeared normal. The scope was then withdrawn into the stomach adequately insufflated with air and upon careful examination the antrum and body, had scattered erosions and biopsies were done from this area. Mucosa of the cardia and fundus appeared normal. The scope was then withdrawn into the esophagus. The GE junction was located at 40 cm to the incisors. It appeared regular with no erythema erosions or ulcerations. Rest of the esophagus appeared normal. Patient tolerated the procedure well. At this time the patient continued to remain sedation. Initial digital rectal examination was normal. Olympus CF 160 video colonoscope was then inserted into the rectum and gradually advanced to the cecum without any difficulty. Careful examination was performed as the scope was gradually being withdrawn. The prep was excellent. The cecum, ascending colon, transverse colon, descending colon, sigmoid colon and rectum appeared normal. Retroflexion was performed in the rectum and no lesions were noted. Patient tolerated the procedure well. Impression: 1. Upper endoscopy revealed antral erosive gastritis but no evidence of esophagitis or Cortés's esophagus 2. Colonoscopy was within normal limits with no evidence of colitis or colorectal neoplasia Recommendations: Findings of this examination were discussed with the patient as well as her family. She was advised to continue with omeprazole 20 mg daily and follow ant ireflux measures. Recommended repeat screening colonoscopy in 10 years.
[2025-02-16 09:55] VITALS: BP 123/88; PULSE 71
== END 2025-02-16 10:22 | disposition home or self-care (01) ==
LOC: ORWHC2ENDO 08:28
PROVIDERS: ATTEND Internal Medicine Gastroenterology
DX: Z12.11 Encounter for screening for malignant neoplasm of colon (principal); K29.50 Unspecified chronic gastritis without bleeding; K21.9 Gastro-esophageal reflux disease without esophagitis; E78.5 Hyperlipidemia, unspecified; E03.9 Hypothyroidism, unspecified; E28.2 Polycystic ovarian syndrome; Z79.84 Long term (current) use of oral hypoglycemic drugs; Z79.890 Hormone replacement therapy; Z79.899 Other long term (current) drug therapy; Z88.1 Allergy status to other antibiotic agents
CPT/HCPCS: 45378; 43239; 81025; J2704; J2003; J1596; 88305